=== PATIENT | female | born 1955 | race Caucasian/White ===

== ENCOUNTER 2024-05-06 18:51 | Inpatient (IN) | payer MEDICARE ==
[~2024-05-06] VITALS: Ht 152.4 cm; Wt 48.5 kg
[~2024-05-06 18:51] MED LIST: KETOROLAC TROME10 MG PO; METHOCARBAMOL500 MG PO
[2024-05-06 19:05] VITALS: TEMP 98.6
[2024-05-06] MEDS: SODIUM CHLORIDE 0.9% 1000ML 2,000 ML IV STA (20:00)
[2024-05-06] MEDS: ONDANSETRON HCL INJ 2MG/ML 2ML 2 MG/ML VIAL IV STA (20:00)
[2024-05-06 20:01] LABS: BASOPHILS % 0.2 % (0.0-1.0); EOSINOPHILS # (AUTO) 0.1 (0.0-0.4); EOSINOPHILS % 0.3 % (0.0-6.0); HEMATOCRIT 38.9 % (34.2-44.1); HEMOGLOBIN 14.4 g/dL (12.0-16.0); LYMPHOCYTES # (AUTO) 1.1 (1.0-3.2); LYMPHOCYTES % 5.9 % (18.0-39.1); MEAN CORPUSCULAR HEMOGLOBIN 32.9 pg (28-32); MEAN CORPUSCULAR VOLUME 88.8 fL (81-99); MONOCYTES # (AUTO) 1.1 (0.2-0.8); MONOCYTES % 5.8 % (4.4-11.3); NEUTROPHILS # (AUTO) 15.9 (2.1-6.9); NEUTROPHILS % 87.3 % (38.7-80.0); PLATELET COUNT 379 x10e3/uL (140-360); RED BLOOD COUNT 4.38 x10e6/uL (3.6-5.1); RED CELL DISTRIBUTION WIDTH 11.7 % (11.7-14.4); WHITE BLOOD COUNT 18.18 x10e3/uL (4.8-10.8)
[2024-05-06] MEDS: FAMOTIDINE 20 MG/2 ML VIAL IV ONE (20:01)
[2024-05-06 20:42] LABS: ALBUMIN 4.2 g/dL (3.5-5.0); ALBUMIN/GLOBULIN RATIO 1.3 (0.8-2.0); ANION GAP 16.1 mmol/L (8-16); BILIRUBIN,TOTAL 0.8 mg/dL (0.2-1.2); CALCIUM 9.5 mg/dL (8.4-10.2); CREATININE, SERUM 0.62 mg/dL (0.57-1.11); TOTAL PROTEIN 7.4 g/dL (6.5-8.1)
[2024-05-06 20:43] LABS: POTASSIUM 3.1 mmol/L (3.5-5.1)
[2024-05-06 20:48] LABS: TROPONIN I 0.001 ng/mL (0-0.300)
[2024-05-06] MEDS ORDERED: ONDANSETRON HCL INJ 2MG/ML 2ML 2 MG/ML VIAL IV PRN (21:00)
[2024-05-06 21:02] LABS: BLOOD UREA NITROGEN 7 mg/dL (7-26); GLUCOSE 93 mg/dL (74-118); OSMOLALITY,SERUM 232 mOsm/kg (278-305)
[2024-05-06 21:05] LABS: SODIUM 116 mmol/L (136-145)
[2024-05-06 22:21] LABS: COLOR,URINE YELLOW (YELLOW)
[2024-05-06 22:22] LABS: BILIRUBIN,URINE NEGATIVE (NEGATIVE); CLARITY,URINE CLEAR (CLEAR); GLUCOSE, URINE NEGATIVE (NEGATIVE); KETONES,URINE NEGATIVE (NEGATIVE); LEUKOCYTE ESTERASE ,URINE NEGATIVE (NEGATIVE); NITRITE,URINE NEGATIVE (NEGATIVE); PH,URINE 6.5 (5 - 7); PROTEIN,URINE DIPSTICK NEGATIVE (NEGATIVE); URINE UROBILINOGEN 0.2 mg/dL (0.2 - 1)
[2024-05-06 22:32] LABS: BACTERIA,URINE FEW /HPF; EPITHELIAL CELLS,URINE FEW /LPF; RBC,URINE 0-5 /HPF (0-5); RENAL EPITHELIAL CELLS,URINE FEW; WBC,URINE (MAN) 0-5 /HPF (0-5)
[2024-05-07] VITALS (11 sets, daily range): BP systolic 121–155; BP diastolic 62–97; PULSE 65–82; RESP 15–18; TEMP 97.3–97.9; O2SAT 97–100
[2024-05-07 00:02] LABS: ANION GAP 16.2 mmol/L (8-16); CALCIUM 9.1 mg/dL (8.4-10.2); CREATININE, SERUM 0.59 mg/dL (0.57-1.11)
[2024-05-07 00:14] LABS: POTASSIUM 3.2 mmol/L (3.5-5.1)
[2024-05-07] MEDS: SODIUM CHLORIDE 0.9% 1000ML 1,000 ML IV SCH (00:24)
[2024-05-07] MEDS: NICOTINE 14 MG/EA PATCH TOP SCH (01:17)
[2024-05-07] MEDS ORDERED: PREGABALIN50 MG PO (01:49)
[2024-05-07] MEDS ORDERED: ATORVASTATIN CA40 MG PO (01:49)
[2024-05-07] MEDS ORDERED: METOPROLOL TART50 MG PO (01:49)
[2024-05-07] MEDS ORDERED: HYDROCODON-ACE1 EA11 PO (01:49)
[2024-05-07] MEDS ORDERED: POTASSIUM CHLORIDE IN D5W 1,000 ML IV ONE (02:45)
[2024-05-07 06:05] LABS: BASOPHILS % 0.3 % (0.0-1.0); EOSINOPHILS # (AUTO) 0.1 (0.0-0.4); EOSINOPHILS % 0.9 % (0.0-6.0); HEMATOCRIT 38.3 % (34.2-44.1); HEMOGLOBIN 13.7 g/dL (12.0-16.0); LYMPHOCYTES # (AUTO) 1.2 (1.0-3.2); LYMPHOCYTES % 8.2 % (18.0-39.1); MEAN CORPUSCULAR HEMOGLOBIN 32.9 pg (28-32); MEAN CORPUSCULAR HGB CONC 35.8 g/dL (31-35); MEAN CORPUSCULAR VOLUME 91.8 fL (81-99); MONOCYTES # (AUTO) 0.9 (0.2-0.8); MONOCYTES % 6.1 % (4.4-11.3); NEUTROPHILS # (AUTO) 12.5 (2.1-6.9); PLATELET COUNT 392 x10e3/uL (140-360); RED BLOOD COUNT 4.17 x10e6/uL (3.6-5.1); RED CELL DISTRIBUTION WIDTH 11.9 % (11.7-14.4); WHITE BLOOD COUNT 14.85 x10e3/uL (4.8-10.8)
[2024-05-07 06:28] LABS: ALANINE AMINOTRANSFERASE 12 IU/L (0-55); ALBUMIN 3.9 g/dL (3.5-5.0); ALBUMIN/GLOBULIN RATIO 1.3 (0.8-2.0); ALKALINE PHOSPHATASE 100 IU/L (40-150); ANION GAP 14.7 mmol/L (8-16); BILIRUBIN,TOTAL 0.6 mg/dL (0.2-1.2); BLOOD UREA NITROGEN < 5 mg/dL (7-26); CALCIUM 8.9 mg/dL (8.4-10.2); CARBON DIOXIDE 26 mmol/L (22-29); CHLORIDE 89 mmol/L (98-107); CREATININE, SERUM 0.56 mg/dL (0.57-1.11); EST GLOMERULAR FILTRATION RATE 99 ML/MIN (>=60); GLUCOSE 83 mg/dL (74-118); SODIUM 127 mmol/L (136-145); TOTAL PROTEIN 6.9 g/dL (6.5-8.1)
[2024-05-07 06:37] LABS: BUN/CREATININE RATIO 9 (6-25); POTASSIUM 2.7 mmol/L (3.5-5.1)
[2024-05-07 06:51] LABS: TROPONIN I 0.006 ng/mL (0-0.300)
[2024-05-07] MEDS ORDERED: ACETAMINOPHEN 1000 MG/100 ML IV PRN (08:45)
[2024-05-07 08:56] LABS: MAGNESIUM 1.8 MG/DL (1.3-2.1); PHOSPHORUS 2.4 MG/DL (2.3-4.7)
[2024-05-07] MEDS: PREGABALIN 50 MG CAP PO SCH (09:41)
[2024-05-07] MEDS: METOPROLOL TARTRATE 50 MG TAB PO SCH (09:41)
[2024-05-07] MEDS: POTASSIUM CHLORIDE 20MEQ/100ML 100 ML IV SCH (09:42)
[2024-05-07] MEDS: KCL 40MEQ/0.9% SOD CHL 1,000 ML IV SCH (11:13)
[2024-05-07] MEDS: LORAZEPAM INJ 2 MG/ML VIAL IV ONE (11:31)
[2024-05-07 14:43] LABS: TROPONIN I 0.001 ng/mL (0-0.300)
[2024-05-07 17:29] LABS: POTASSIUM 3.7 mmol/L (3.5-5.1)
[2024-05-07] MEDS: SOD CHL 0.45%/POT CHL 20MEQ 1,000 ML IV SCH (18:18)
[2024-05-07] MEDS: Morphine 4mg INJECTION 4 MG/ML INJ IV PRN (21:19)
[2024-05-08] VITALS (7 sets, daily range): BP systolic 110–157; BP diastolic 67–81; PULSE 59–84; RESP 17–19; TEMP 97–98; O2SAT 95–100
[2024-05-08] MEDS: POTASSIUM CHLORIDE IN D5W 1,000 ML IV ONE (02:43)
[2024-05-08 05:41] LABS: BASOPHILS # (AUTO) 0.1 (0.0-0.1); BASOPHILS % 0.4 % (0.0-1.0); EOSINOPHILS # (AUTO) 0.2 (0.0-0.4); EOSINOPHILS % 1.4 % (0.0-6.0); HEMATOCRIT 35.4 % (34.2-44.1); HEMOGLOBIN 12.6 g/dL (12.0-16.0); LYMPHOCYTES % 6.9 % (18.0-39.1); MEAN CORPUSCULAR HEMOGLOBIN 32.9 pg (28-32); MEAN CORPUSCULAR HGB CONC 35.6 g/dL (31-35); MEAN CORPUSCULAR VOLUME 92.4 fL (81-99); MONOCYTES # (AUTO) 0.6 (0.2-0.8); MONOCYTES % 4.6 % (4.4-11.3); NEUTROPHILS # (AUTO) 11.9 (2.1-6.9); PLATELET COUNT 336 x10e3/uL (140-360); RED BLOOD COUNT 3.83 x10e6/uL (3.6-5.1); RED CELL DISTRIBUTION WIDTH 12.3 % (11.7-14.4)
[2024-05-08 08:03] LABS: MAGNESIUM 1.5 MG/DL (1.3-2.1)
[2024-05-08 08:06] LABS: ALANINE AMINOTRANSFERASE 17 IU/L (0-55); ALBUMIN 3.5 g/dL (3.5-5.0); ALBUMIN/GLOBULIN RATIO 1.1 (0.8-2.0); ALKALINE PHOSPHATASE 110 IU/L (40-150); BILIRUBIN,TOTAL 0.6 mg/dL (0.2-1.2); BLOOD UREA NITROGEN < 5 mg/dL (7-26); BUN/CREATININE RATIO 11 (6-25); CALCIUM 9.2 mg/dL (8.4-10.2); CARBON DIOXIDE 18 mmol/L (22-29); CHLORIDE 91 mmol/L (98-107); CREATININE, SERUM 0.47 mg/dL (0.57-1.11); EST GLOMERULAR FILTRATION RATE 104 ML/MIN (>=60); GLUCOSE 86 mg/dL (74-118); TOTAL PROTEIN 6.7 g/dL (6.5-8.1)
[2024-05-08] MEDS: HYDROCODONE/APAP 5MG-325MG TAB PO PRN (09:16)
[2024-05-08] MEDS ORDERED: MAGNESIUM SULFATE 2GM/50ML IV ONE (09:45)
[2024-05-08] MEDS: MAGNESIUM SULFATE 2GM/50ML 50 ML IV ONE (10:51)
[2024-05-08] MEDS: POTASSIUM PHOSPHATE 20 MM in SODIUM CHLORIDE 0.9% 250ML 250 ML IV ONE (10:52)
[2024-05-08 16:00] LABS: SODIUM 129 mmol/L (128-145)
[2024-05-09] VITALS (8 sets, daily range): BP systolic 121–158; BP diastolic 73–99; PULSE 68–91; RESP 16–19; TEMP 97–98; O2SAT 97–100
[2024-05-09 05:41] LABS: BASOPHILS # (AUTO) 0.1 (0.0-0.1); BASOPHILS % 0.7 % (0.0-1.0); EOSINOPHILS # (AUTO) 0.3 (0.0-0.4); EOSINOPHILS % 2.7 % (0.0-6.0); HEMATOCRIT 38.1 % (34.2-44.1); HEMOGLOBIN 13.3 g/dL (12.0-16.0); LYMPHOCYTES # (AUTO) 1.4 (1.0-3.2); LYMPHOCYTES % 12.6 % (18.0-39.1); MEAN CORPUSCULAR HEMOGLOBIN 32.7 pg (28-32); MEAN CORPUSCULAR HGB CONC 34.9 g/dL (31-35); MEAN CORPUSCULAR VOLUME 93.6 fL (81-99); MONOCYTES # (AUTO) 0.7 (0.2-0.8); MONOCYTES % 6.4 % (4.4-11.3); NEUTROPHILS # (AUTO) 8.3 (2.1-6.9); NEUTROPHILS % 77.1 % (38.7-80.0); PLATELET COUNT 370 x10e3/uL (140-360); RED BLOOD COUNT 4.07 x10e6/uL (3.6-5.1); RED CELL DISTRIBUTION WIDTH 12.6 % (11.7-14.4); WHITE BLOOD COUNT 10.77 x10e3/uL (4.8-10.8)
[2024-05-09 05:58] LABS: ANION GAP 16.2 mmol/L (8-16); BLOOD UREA NITROGEN < 5 mg/dL (7-26); BUN/CREATININE RATIO 9 (6-25); CALCIUM 9.5 mg/dL (8.4-10.2); CARBON DIOXIDE 22 mmol/L (22-29); CHLORIDE 91 mmol/L (98-107); CREATININE, SERUM 0.55 mg/dL (0.57-1.11); EST GLOMERULAR FILTRATION RATE 100 ML/MIN (>=60); GLUCOSE 148 mg/dL (74-118); SODIUM 126 mmol/L (136-145)
[2024-05-09 05:59] LABS: POTASSIUM 3.2 mmol/L (3.5-5.1)
[2024-05-09 06:21] LABS: MAGNESIUM 1.8 MG/DL (1.3-2.1); PHOSPHORUS 2.9 MG/DL (2.3-4.7)
[2024-05-09] MEDS: POTASSIUM CHLORIDE 10MEQ EA PO ONE (11:09)
[2024-05-09] MEDS: SODIUM CHLORIDE 0.9% 1000ML 1,000 ML IV SCH (14:11)
[2024-05-09] MEDS: SODIUM CHLORIDE 452MG TAB PO SCH (17:33)
[2024-05-10] VITALS (9 sets, daily range): BP systolic 145–168; BP diastolic 54–105; PULSE 62–96; RESP 16–19; TEMP 97–98.4; O2SAT 99–100
[2024-05-10] MEDS: BISACODYL 5 MG TAB EC PO PRN (08:54)
[2024-05-10 09:08] LABS: ANION GAP 18.5 mmol/L (8-16); BLOOD UREA NITROGEN < 5 mg/dL (7-26); CALCIUM 9.9 mg/dL (8.4-10.2); CARBON DIOXIDE 17 mmol/L (22-29); CHLORIDE 94 mmol/L (98-107); CREATININE, SERUM 0.54 mg/dL (0.57-1.11); EST GLOMERULAR FILTRATION RATE 100 ML/MIN (>=60); GLUCOSE 143 mg/dL (74-118); POTASSIUM 3.5 mmol/L (3.5-5.1); SODIUM 126 mmol/L (136-145)
[2024-05-10 09:13] LABS: BUN/CREATININE RATIO 9 (6-25)
[2024-05-10] MEDS: POTASSIUM CHLORIDE 20 MEQ TAB CR PO ONE (14:03)
[2024-05-10] MEDS: HYDROCODONE/APAP 5MG-325MG TAB PO PRN (15:44)
[2024-05-10] MEDS: SODIUM CHLORIDE 1 GM TAB PO SCH (17:37)
[2024-05-11] VITALS: BP 160/88; PULSE 87; RESP 17; TEMP 97.9; O2SAT 97
[2024-05-11 04:00] VITALS: BP 156/91; PULSE 96; RESP 17; TEMP 97.9; O2SAT 99
[2024-05-11 05:29] LABS: ANION GAP 15.5 mmol/L (8-16); BLOOD UREA NITROGEN < 5 mg/dL (7-26); CALCIUM 9.8 mg/dL (8.4-10.2); CARBON DIOXIDE 24 mmol/L (22-29); CHLORIDE 95 mmol/L (98-107); CREATININE, SERUM 0.63 mg/dL (0.57-1.11); EST GLOMERULAR FILTRATION RATE 97 ML/MIN (>=60); GLUCOSE 131 mg/dL (74-118); POTASSIUM 4.5 mmol/L (3.5-5.1); SODIUM 130 mmol/L (136-145)
[2024-05-11 05:56] LABS: BUN/CREATININE RATIO 8 (6-25)
[2024-05-11] MEDS ORDERED: PIPERACILLIN/TAZOBACTAM 3.375 GM VIAL ONE (06:40)
[2024-05-11 08:16] VITALS: BP 145/87; PULSE 84; RESP 18; TEMP 98.9; O2SAT 99
== END 2024-05-11 10:06 | disposition home or self-care (01) | DRG 444 ==
LOC: ER 19:00 → ERHOLD 20:53 → MED/SURG2 05-07 00:50
PROVIDERS: ADMIT Internal Medicine; ATTEND Internal Medicine
PROC: 02HV33Z Insertion of Infusion Device into Superior Vena Cava, Percutaneous Approach (ICD-10-PCS; principal; 2024-05-07)
DX: K83.1 Obstruction of bile duct (principal); K85.90 Acute pancreatitis without necrosis or infection, unspecified; E87.1 Hypo-osmolality and hyponatremia; K81.0 Acute cholecystitis; E86.0 Dehydration; I10 Essential (primary) hypertension; R63.4 Abnormal weight loss; Z68.20 Body mass index [BMI] 20.0-20.9, adult; E78.5 Hyperlipidemia, unspecified; E87.6 Hypokalemia; K52.9 Noninfective gastroenteritis and colitis, unspecified; Z11.52 Encounter for screening for COVID-19; I25.2 Old myocardial infarction; Z93.4 Other artificial openings of gastrointestinal tract status; Z90.49 Acquired absence of other specified parts of digestive tract; F17.210 Nicotine dependence, cigarettes, uncomplicated
CPT/HCPCS: 36415; 36568; 74177; 74181; 76705; 80048; 80053; 80320; 81001; 82550; 82947; 83690; 83735; 83880; 83935; 84100; 84132; 84295; 84300; 84484; 84520; 85025; 93005; 99284; J2060; J2270; J2405; J2470; J2543; J3475; J3480; J7030; J7050; U0002